=== PATIENT | female | born 1960 | race Caucasian/White ===

== ENCOUNTER 2024-02-24 12:55 | Outpatient (CLI) | payer BC, SELFPAY | END 2024-02-24 12:56 | disposition home or self-care (01) | LOC: ANHAUDASC 12:57 | PROVIDERS: PCP Otolaryngology; Visit Provider Otolaryngology | DX: H90.3 Sensorineural hearing loss, bilateral (principal); H93.13 Tinnitus, bilateral; H61.23 Impacted cerumen, bilateral | CPT/HCPCS: 92557; 92567 ==

== ENCOUNTER 2024-03-23 13:00 | Outpatient (RCR) | payer BC, SELFPAY | END 2024-05-28 23:59 | disposition home or self-care (01) | LOC: ANHAUDASC 13:00 | PROVIDERS: PCP Otolaryngology; Visit Provider Otolaryngology | DX: Z46.1 Encounter for fitting and adjustment of hearing aid (principal) | CPT/HCPCS: 99199; V5160; V5261 ==